=== PATIENT | male | born 1990 | race Caucasian/White ===

== ENCOUNTER 2018-08-31 12:02 | Emergency (ER) | payer OTHER ==
[2018-08-31] MEDS ORDERED: KETOROLAC 15 MG/1 ML SDV IM ONE (12:42)
[2018-08-31] MEDS ORDERED: LIDOCAINE 4%/MENTHOL 1% PATCH TD ONE (12:43)
[2018-08-31] MEDS ORDERED: CYCLOBENZAPRINE 10 MG TAB PO ONE (12:43)
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
[2018-08-31 15:57] VITALS: BP 114/70
[2018-08-31] MEDS ORDERED: PATCH REMOVAL 1 EA PATCH TD SCH (21:00)
== END 2018-08-31 15:57 | disposition home or self-care (01) ==
LOC: EDUNIT# → EEVIPCON 12:02
DX: S39.012A Strain of muscle, fascia and tendon of lower back, initial encounter (principal); Y93.B2 Activity, push-ups, pull-ups, sit-ups; Y92.149 Unspecified place in prison as the place of occurrence of the external cause; Y99.9 Unspecified external cause status
CPT/HCPCS: J1885